=== PATIENT | male | born 1955 | race African-American/Black ===

== ENCOUNTER → 2020-02-06 07:47 | Outpatient (BNVA) | payer OTHER, SELFPAY | PROVIDERS: PCP Internal Medicine; Visit Provider Dietitian, Registered | DX: Z76.89 Persons encountering health services in other specified circumstances (principal) ==

== ENCOUNTER → 2020-03-04 14:22 | Outpatient (BNVA) | payer OTHER, SELFPAY | PROVIDERS: PCP Internal Medicine; Referring Provider Internal Medicine; Visit Provider Physician Assistant | DX: Z76.89 Persons encountering health services in other specified circumstances (principal) ==

== ENCOUNTER → 2020-03-09 08:09 | Outpatient (BNVA) | payer OTHER, SELFPAY | PROVIDERS: PCP Internal Medicine; Visit Provider Surgery | DX: Z76.89 Persons encountering health services in other specified circumstances (principal) ==

== ENCOUNTER → 2020-03-27 07:04 | Outpatient (BNVA) | payer OTHER, SELFPAY | PROVIDERS: PCP Internal Medicine; Referring Provider Internal Medicine; Visit Provider Surgery | DX: Z76.89 Persons encountering health services in other specified circumstances (principal) ==

== ENCOUNTER 2020-04-07 15:08 | Outpatient (REF) | payer OTHER, SELFPAY | END 2020-04-07 15:09 | disposition home or self-care (01) | LOC: HO.XRAY 15:08 | PROVIDERS: PCP Internal Medicine; Visit Provider Internal Medicine | DX: E66.9 Obesity, unspecified (principal); G47.30 Sleep apnea, unspecified; R05 Cough | CPT/HCPCS: 99202 ==

== ENCOUNTER 2020-04-21 12:15 | Outpatient (REF) | payer OTHER, SELFPAY ==
--- NOTE | 2020-04-21 12:33 | XR_ITS ---
EXAMINATION: XR CHEST CLINICAL INFORMATION: Cough. COMPARISON: Chest 11/04/2019 TECHNIQUE: 2 views of the chest were obtained. FINDINGS: No significant abnormality is noted involving the heart, lungs, mediastinum, bony thorax or soft tissues. XR/XR chest 2V IMPRESSION: Unremarkable chest examination.
== END 2020-04-21 12:16 | disposition home or self-care (01) ==
LOC: HO.XRAY 12:15
PROVIDERS: Visit Provider Internal Medicine
DX: R05 Cough (principal); G47.30 Sleep apnea, unspecified
CPT/HCPCS: 71046

== ENCOUNTER → 2020-05-08 08:19 | Outpatient (BNVA) | payer OTHER, SELFPAY | PROVIDERS: PCP Internal Medicine; Visit Provider Surgery ==

== ENCOUNTER → 2020-06-08 08:25 | Outpatient (BNVA) | payer OTHER, SELFPAY | PROVIDERS: PCP Internal Medicine; Visit Provider Surgery ==